=== PATIENT | male | born 1960 | race Caucasian/White ===

== ENCOUNTER 2017-04-20 17:03 | Emergency (ER) | payer OTHER ==
[~2017-04-20] VITALS: Ht 180.3 cm; Wt 117.0 kg
--- NOTE | 2017-04-20 17:20 | ED NEURO DEFICIT/STROKE ---
History of Present Illness General Chief Complaint: Neuro Symptoms/ Deficit Stated Complaint: LFT HAND NUMBNESS Source: patient Exam Limitations: no limitations Vital Signs & Intake/Output Vital Signs & Intake/Output Vital Signs Date Time Temp Pulse Resp B/P B/P Pulse O2 O2 Flow FiO2 Mean Ox Delivery Rate 04/20 1738 97 Room Air 04/20 1708 98.6 87 16 137/80 95 Room Air Allergies Coded Allergies: No Known Allergies (04/20/17) Triage Note: PT STATES HE HAD A CEREBRAL HEMMORHAGE 6 WEEKS AGO WHILE IN [facility] AND IS CONCERNED TODAY BECAUSE HIS LEFT HAND WENT NUMB AND WAS SHAKING. PT STATES SYPTOMS HAVE SINCE RESOLVED BUT HAPPEND 3 TIMES TODAY. PT ALERT/ORIENTED DENIES WEAKNESS IN BILAT UPPER OR LOWER EXT. NO FACIAL DROOP NOTED. Triage Nurses Notes Reviewed? yes HPI: Patient was driving home from [facility] when he suddenly developed loss of sensation to his left hand and his left hand Twitching. There is no radiation up into his arm. The symptoms were intermittent and lasting a few minutes but he is had 3 such episodes. Patient denies any headache or blurry vision. Patient is able to move his hand without difficulty. Patient became concerned because he had a cerebral hemorrhage 6 weeks ago while in [place]. He did not require any surgical intervention. He states that the symptoms started off as numbness in his left hand. Patient denies any difficulty speaking or walking. He has no other complaints. He currently still feels the loss of sensation in his left hand. Past History Travel History Traveled to [place] past 21 day No Medical History Any Pertinent Medical History? see below for history Neurological: CEREBRAL HEMMORHAGE Cardiovascular: hypertension, hyperlipidemia Surgical History Surgical History: non-contributory Psychosocial History What is your primary language Citizen [place] Tobacco Use: Quit >30 days ago ETOH Use: denies use Illicit Drug Use: denies illicit drug use Family History Hx Contributory? No Review of Systems Review of Systems Constitutional: Reports: no symptoms. EENTM: Reports: no symptoms. Respiratory: Reports: no symptoms. Cardiovascular: Reports: no symptoms. GI: Reports: no symptoms. Genitourinary: Reports: no symptoms. Musculoskeletal: Reports: no symptoms. Skin: Reports: no symptoms. Neurological/Psychological: Reports: see HPI, paresthesia. Hematologic/Endocrine: Reports: no symptoms. Immunologic/Allergic: Reports: no symptoms. All Other Systems: Reviewed and Negative Physical Exam Physical Exam General Appearance: well developed/nourished, alert, awake, anxious, mild distress Head: atraumatic, normal appearance Eyes: Bilateral: PERRL, EOMI. Ears, Nose, Throat: normal ENT inspection, moist mucous membrane, hearing grossly normal Neck: normal inspection, supple, full range of motion Respiratory: normal breath sounds, chest non-tender, no respiratory distress, lungs clear Cardiovascular: regular rate/rhythm, normal peripheral pulses Gastrointestinal: normal bowel sounds, soft, non-tender, no organomegaly Back: normal inspection, normal range of motion Extremities: normal range of motion Psychiatric: awake, alert, oriented x 3 Cranial Nerves: normal hearing, normal speech, PERRL Coordination/Gait: normal finger to nose, normal gait Motor/Sensory: sensory deficit (SUBJECTIVE, LEFT HAND) Skin: intact, normal color, warm/dry Core Measures CVA/TIA Diagnosis: No Severe Sepsis Present: No Septic Shock Present: No Progress Differential Diagnosis: drug intoxication, electrolyte imbalance, intracranial Hem., intracranial mass/tumor, seizure disorder, stroke Plan of Care: Orders Procedure Date/time Status TROPONIN LEVEL 04/20 1717 Complete PARTIAL THROMBOPLASTIN TIME 04/20 1717 Complete PROTHROMBIN TIME 04/20 1717 Complete CBC WITHOUT DIFFERENTIAL 04/20 1717 Complete EKG 04/20 1717 Active Current Medications Sig/Alin Start time Last Medication Dose Stop Time Status Admin Levetiracetam 500 MG ONCE ONE 04/20 1900 AC (Keppra) 04/20 190 Laboratory Tests 04/20/17 1735: Troponin I 0.01, PT 11.8, INR 1.13, APTT 30, CBC w Diff NO MAN DIFF REQ, RBC 5.53, MCV 89.4, MCH 29.8, RDW 14.5, MPV 8.3, Gran % 70.6, Lymphocytes % 15.9 L, Monocytes % 9.4 H, Eosinophils % 3.6, Basophils % 0.5, Absolute Granulocytes 5.3, Absolute Lymphocytes 1.2, Absolute Monocytes 0.7 H, Absolute Eosinophils 0.3, Absolute Basophils 0, PUBS MCHC 33.3 Diagnostic Imaging: Viewed by Me: CT Scan. Discussed w/RAD: CT Scan. Initial ED EKG: NSR, nonspecific ST T wave chg Comments: The way he describes his hand twitching raises the possibility of a focal seizure. There is a little bit of edema in the brain. Patient states that he was on steroids while in [place] but nobody talked to him about antiseizure medications. Patient lives in [facility] however he is staying with his brother here in [place]. Patient advised that he really cannot drive until cleared by neurology. Patient is agreeable to starting on Keppra. Patient will follow-up with neurology. Departure Departure Disposition: HOME OR SELF CARE Condition: Stable Clinical Impression Primary Impression: Focal seizure Referrals: SARAH HSU,CATHERINE Alexandra Additional Instructions: Do not drive until cleared by neurology. Follow-up with Dr. Arizmendi or one of her partners. Return for any concerns. Departure Forms: Customer Survey General Discharge Information Prescriptions: Current Visit Scripts Levetiracetam (Keppra) 1 TAB PO BID #60 TAB Critical Care Note Critical Care Note Critical Care Time: mins: (30 MIN)
[2017-04-20 17:42] LABS: ABSOLUTE BASOPHIL COUNT 0 /CUMM (0.0-0.2); ABSOLUTE EOSINOPHIL COUNT 0.3 /CUMM (0.0-0.7); ABSOLUTE GRANULOCYTE CT 5.3 /CUMM (1.4-6.5); ABSOLUTE LYMPH COUNT 1.2 /CUMM (1.2-3.4); ABSOLUTE MONOCYTE COUNT 0.7 /CUMM (0.10-0.60); BASOPHIL % 0.5 % (0.0-2.0); EOSINOPHIL % 3.6 % (0-5); GRANULOCYTE % 70.6 % (42.2-75.2); HEMATOCRIT 49.5 % (42-52); MEAN CORPUSCULAR HGB 29.8 PG (27.0-31.0); MEAN CORPUSCULAR HGB CONC 33.3 G/DL (33.0-37.0); MEAN CORPUSCULAR VOLUME 89.4 FL (80.0-94.0); MEAN PLATELET VOLUME 8.3 FL (7.4-10.4); PLATELET COUNT 268 /CUMM (130-400); RBC DISTRIBUTION WIDTH 14.5 % (11.5-14.5); RED BLOOD CELL CT 5.53 /CUMM (4.70-6.10); WHITE BLOOD CELL COUNT 7.5 /CUMM (4.8-10.8)
[2017-04-20 17:50] LABS: PT 11.8 SEC (9.4-12.5); PTT 30 SEC (25-37)
--- NOTE | 2017-04-20 17:57 | CT SCAN REPORT ---
EXAMINATION: CT HEAD WITHOUT CONTRAST CLINICAL INFORMATION: Left arm numbness. History of intracranial hemorrhage 6 weeks ago. COMPARISON: None. TECHNIQUE: Contiguous axial imaging was performed from the skull base to vertex without intravenous contrast. DLP: 627 mGy-cm. FINDINGS: There is abnormal parenchymal attenuation in the right parietal lobe, in the subcortical region. There is minimal linear high attenuation extending towards the posterior horn of the right lateral ventricle. Edema is seen in the surrounding white matter. This appearance is nonspecific. This could represent an area of evolving parenchymal hemorrhage as suggested by the clinical history. A parenchymal mass is not excluded. There is no additional evidence of acute intracranial hemorrhage or territorial infarction. No abnormal mass effect or midline shift is seen. Hernandez to white matter differentiation is well preserved. No extra-axial fluid collections are identified. No hydrocephalus. No significant volume loss. The osseous structures and soft tissues are normal. Mild opacification of the right maxillary sinus. The mastoid air cells and visualized portions of the paranasal sinuses are otherwise well aerated. IMPRESSION: Abnormal attenuation within the right parietal lobe with surrounding edema. This is a nonspecific appearance. Based on the clinical history, this could represent an area of resolving hemorrhage with possible encephalomalacia. A parenchymal lesion is not excluded. Correlation with prior imaging would be useful. MRI could be obtained for further evaluation. This critical result was discussed with GARETH COELHO MD by telephone at 04/20/2017 5:52 PM and it was ascertained that the content and urgency of the report was understood at the time of direct communication.
[2017-04-20] MEDS ORDERED: KEPPRA500 M1 PO (18:52)
[2017-04-20 19:08] VITALS: BP 154/80
== END 2017-04-20 19:08 ==
LOC: ERH 17:03
PROVIDERS: Emergency Medicine
DX: G40.89 Other seizures (principal); I10 Essential (primary) hypertension; Z87.891 Personal history of nicotine dependence
CPT/HCPCS: 93005; 93010; J1953